=== PATIENT | female | born 1965 | race Caucasian/White ===

== ENCOUNTER 2017-10-09 12:02 | Emergency (ER) | payer SELFPAY ==
[2017-10-09 12:42] VITALS: TEMP 97.7
--- NOTE | 2017-10-09 13:22 | ED.PDOC ---
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 Timing/Duration: gradual EENT Location: eye (R), eye (L) Prearrival Treatment: no prearrival treatment Presenting Symptoms: see hpi Improving Factors: nothing Worsening Factors: nothing Associated Symptoms: denies symptoms, other - see hpi Allergies/Adverse Reactions: Allergies NO KNOWN ALLERGY Allergy (Unverified 03/19/15 18:56) Home Medications: Ambulatory Orders predniSONE 20 mg PO QAM #5 tab 03/19/15 Review of Systems - Review of Systems Constitutional: States: no symptoms reported EENTM: States: see HPI Respiratory: States: no symptoms reported Cardiology: States: no symptoms reported Gastrointestinal/Abdominal: States: no symptoms reported Genitourinary: States: no symptoms reported Musculoskeletal: States: no symptoms reported Skin: States: no symptoms reported Neurological: States: no symptoms reported All other Systems: Reviewed and Negative, No Change from Baseline Past Medical History (General) - Patient Medical History Hx Stroke: No Hx Asthma: No Hx of COPD: No Hx Cardiac Disorders: No Hx Pacemaker: No Hx Hypertension: No Hx Diabetes: No Hx Gastroesophageal Reflux: No Hx Renal Disease: No Surgical History: appendectomy - Social History Hx Tobacco Use: Yes Years Tobacco Use: 9 Cigarettes Packs Per Day: 20 Hx Alcohol Use: No Hx Substance Use: No Hx Physical Abuse: No Hx Emotional Abuse: No Hx Suspected Abuse: No Family Medical History - Family History Mother Family History: Unknown Living Status: Unknown Hx Family Asthma: Yes - copd-dad Hx Family;Other: Multiple sclerosis Physical Exam - Physical Exam General Appearance: Alert, Comfortable, No apparent distress Eye Exam: bilateral normal Ear Exam: bilateral ear: auricle normal, canal normal, TM normal Nasal Exam: normal inspection Throat Exam: normal mouth inspection Cardiovascular/Respiratory: regular rate, rhythm, no M/R/G, normal peripheral pulses, no JVD, normal breath sounds Abdominal Exam: non-tender, no organomegaly Neurologic: alert, oriented x 3 Skin Exam: normal color, warm/dry Progress - Progress Progress: 10/09/17 13:26 Vital Signs 10/09/17 12:37 Temperature 97.7 F Pulse Rate [ 86 left brachial] Respiratory 22 Rate Blood Pressure 135/85 [left brachial] O2 Sat by Pulse 99 Oximetry - Results/Orders Results/Orders: Laboratory Results - last 24 hr 10/09/17 10/09/17 13:27 13:27 WBC 7.7 RBC 5.05 Hgb 16.8 H Hct 48.2 H MCV 95.4 MCH 33.2 H MCHC 35.0 RDW 13.0 Plt Count 263 MPV 10.3 Absolute Neuts (auto) 5.50 Absolute Lymphs (auto) 1.40 Absolute Monos (auto) 0.50 Absolute Eos (auto) 0.10 Absolute Basos (auto) 0.10 Neutrophils % 72.2 Lymphocytes % 18.9 L Monocytes % 6.7 Eosinophils % 1.2 Basophils % 1.0 Sodium 138 Potassium 3.8 Chloride 105 Carbon Dioxide 24 Anion Gap 12.8 BUN 11 Creatinine 0.80 BUN/Creatinine Ratio 13.8 Random Glucose 98 Serum Osmolality 275.1 Calcium 9.9 - EKG/XRAY/CT XRAY: carotid doppler bilateral 40 percent atherosclerosis Departure - Departure Clinical Impression: Retinal dot hemorrhage of both eyes Time of Disposition: 15:31 Disposition: Discharge to Home or Self Care Condition: Fair Departure Forms: ED Discharge - Pt. Copy, Patient Portal Self Enrollment Instructions: Smoking Cessation for Older Adults: It's Not Too Late!, Smoking and Smoking Cessation in Relation to Mortality in Women Home Medications: Ambulatory Orders predniSONE 20 mg PO QAM #5 tab 03/19/15 Additional Instructions: Follow up with primary Md 10/10/2017;continue with baby aspirin 81 mg daily
[2017-10-09 14:37] VITALS: BP 133/87; O2SAT 97
--- NOTE | 2017-10-09 15:21 | US ---
EXAM DESCRIPTION: Carotid Duplex CLINICAL HISTORY: bilateral retinal hemorrhages COMPARISON: None Available. TECHNIQUE: Multiple grayscale, color, and spectral Doppler images of the bilateral carotid systems. FINDINGS: Mild scattered atherosclerotic plaque. All duplex waveforms and velocities are within normal limits on both sides. ICA/CCA ratios are normal. Both vertebral arteries demonstrate antegrade flow. The external carotid arteries are patent. IMPRESSION: 1. Mild atherosclerosis with 0-40% stenosis in both internal carotid arteries by ratio and velocity criteria. Electronically signed by: Artem Castellanos MD 10/09/2017 3:20 PM [facility]
== END 2017-10-09 15:52 | disposition home or self-care (01) ==
LOC: ER 12:02
DX: H35.63 Retinal hemorrhage, bilateral (principal)

== ENCOUNTER 2020-09-08 19:03 | Emergency (ER) | payer SELFPAY ==
--- NOTE | 2020-09-08 19:28 | ED.PDOC ---
History of Present Illness - General Chief Complaint: Upper Extremity Injury Stated Complaint: swelling Left arm, Fractured Time Seen by Provider: 09/08/20 19:18 Source: patient, RN notes reviewed, Vital Signs reviewed, family Exam Limitations: no limitations - History of Present Illness Initial Comments: Pt presents to ED with left shoulder pain. States she had a seizure 3 days ago and was taken to [place] ED and found to have left proximal humerus fracture and was admitted to [facility]. Had negative MRI brain and seizure workup. Was instructed to f/u with an orthopedic for left shoulder fracture and has an appointment to see Dr. Gibbons tomorrow. She has been in a shoulder immobilizer and taking oral Morphine for pain. Her last dose of pain medication was at noon today. Came to ED for left shoulder pain and attempting to be seen by an orthopedist tonight for possible shoulder surgery. Denies tingling or numbness to LUE. Allergies/Adverse Reactions: Allergies NO KNOWN ALLERGY Allergy (Unverified 03/19/15 18:56) Home Medications: Ambulatory Orders predniSONE 20 mg PO QAM #5 tab 03/19/15 Review of Systems - Review of Systems Constitutional: Denies: chills, fever Respiratory: Denies: cough, short of breath Cardiology: Denies: chest pain, palpitations, syncope Gastrointestinal/Abdominal: Denies: abdominal pain, nausea, vomiting Genitourinary: Denies: dysuria Musculoskeletal: States: see HPI Neurological: Denies: headache, paresthesia All other Systems: Reviewed and Negative Past Medical History (General) - Patient Medical History Hx Stroke: No Hx Asthma: No Hx of COPD: No Hx Cardiac Disorders: No Hx Pacemaker: No Hx Hypertension: No Hx Diabetes: No Hx Gastroesophageal Reflux: No Hx Renal Disease: No - Social History Hx Tobacco Use: Yes Hx Alcohol Use: No Hx Substance Use: No Hx Physical Abuse: No Hx Emotional Abuse: No Hx Suspected Abuse: No Family Medical History - Family History Mother Family History: Unknown Living Status: Unknown Hx Family Asthma: Yes - copd-dad Hx Family;Other: Multiple sclerosis Physical Exam - Physical Exam General Appearance: Alert, Other - shoulder immobilizer in place. Neck: non-tender, full range of motion, supple Cardiovascular/Respiratory: regular rate, rhythm, normal peripheral pulses, normal breath sounds, no respiratory distress Abdominal Exam: non-tender Back Exam: no CVA tenderness, no vertebral tenderness Shoulder Exam: pain - Left shoulder is diffusely TTP. 2+ radial pulse. No elbow tenderness. Cap refill < 2 seconds. Compartments are soft. Neuro/Tendon: normal sensation Mental Status: alert, oriented x 3 Skin Exam: normal color, warm/dry, other - No cyanosis or erythema to LUE Progress - Progress Progress: 09/08/20 20:40 Pt presents with left shoulder pain due to known left proximal humerus fracture. She has appointment with ortho tomorrow. She is NVI on exam. Pain is controlled post meds in ED and feels comfortable going home. She has pain medications she will continue at home. SRP given. - Results/Orders Results/Orders: Left Shoulder xray Left humeral head/neck fracture Departure - Departure Clinical Impression: Left humeral fracture Qualifiers: Encounter type: subsequent encounter Humerus Location: proximal Fracture type: closed Fracture morphology: unspecified fracture morphology Fracture healing: with malunion Qualified Code(s): S42.202P - Unspecified fracture of upper end of left humerus, subsequent encounter for fracture with malunion Time of Disposition: 20:39 Disposition: Discharge to Home or Self Care Condition: Good Departure Forms: ED Discharge - Pt. Copy, Patient Portal Self Enrollment Instructions: DI for Arm Pain, Shoulder Fracture (DC) Diet: resume usual diet Activity: other - Keep shoulder immobilizer in place Referrals: Farshad Gibbons MD [Active Staff] - 1-2 Days Home Medications: Ambulatory Orders predniSONE 20 mg PO QAM #5 tab 03/19/15
[2020-09-08 19:29] VITALS: TEMP 99.5
[2020-09-08] MEDS: diazePAM 5 MG TAB PO ONE (19:34)
[2020-09-08] MEDS: HYDROmorphone HCL INJ 2 MG/ML VIAL IM ONE (19:35)
--- NOTE | 2020-09-08 20:26 | RAD ---
EXAM DESCRIPTION: XR Shoulder, Left 2 or More Views CLINICAL HISTORY: proximal humerus fracture TECHNIQUE: 2 views of the left shoulder are submitted. COMPARISON: 09/06/2020 FINDINGS: Bones: Comminuted, impacted left humeral head and neck fracture with extension to the greater tuberosity again demonstrated. Questionable involvement of the articular surface of the humeral head. Joints: No dislocation. Soft tissues: Unremarkable IMPRESSION: Left humeral head/neck fracture. Electronically signed by: Khoa Church MD 09/08/2020 8:24 PM [facility]
[2020-09-08 21:12] VITALS: BP 128/84; O2SAT 95
== END 2020-09-08 21:11 | disposition home or self-care (01) ==
LOC: ER 19:03
DX: S42.252A Displaced fracture of greater tuberosity of left humerus, initial encounter for closed fracture (principal); X58.XXXA Exposure to other specified factors, initial encounter; Z87.891 Personal history of nicotine dependence
CPT/HCPCS: 73030; 96372; 99284; J1170

== ENCOUNTER 2020-09-11 05:46 | Day surgery (SDC) | payer SELFPAY ==
[~2020-09-11 05:46] MED LIST: LACTATED RINGERS 1,000 ML ONE
[2020-09-11] MEDS ORDERED: LACTATED RINGERS 1,000 ML IVS ONE (06:25)
[2020-09-11] MEDS ORDERED: MIDAZOLAM INJ 2 MG/2 ML VIAL ONE (06:35)
[2020-09-11] MEDS ORDERED: FAMOTIDINE INJ 10 MG/ML VIAL IV ONE (06:35)
[2020-09-11] MEDS ORDERED: HYDROmorphone HCL INJ 2 MG/ML VIAL ONE (06:44)
[2020-09-11] MEDS ORDERED: MAGNESIUM SULFATE INJ 1 GM/2 ML VIAL ONE (07:00)
[2020-09-11] MEDS ORDERED: DEXAMETHASONE INJ 10 MG/ML VIAL ONE (07:00)
[2020-09-11] MEDS ORDERED: LIDOCAINE 1% 10 ML VIAL INJ ONE (07:00)
[2020-09-11] MEDS ORDERED: PROPOFOL 200 MG/20 ML VIAL IV ONE (07:00)
[2020-09-11] MEDS ORDERED: LACTATED RINGERS 650 ML IVS ONE ×4 (07:14)
[2020-09-11] MEDS ORDERED: ONDANSETRON INJ 4 MG/2 ML VIAL ONE (07:37)
[2020-09-11] MEDS ORDERED: HYDROcodone 5MG/APAP 325MG 1 EA TAB ONE (08:11)
[2020-09-11] MEDS ORDERED: HYDROcodone 5MG/APAP 325MG 1 EA TAB PO ONE (08:15)
[2020-09-11 08:21] VITALS: TEMP 98.2
[2020-09-11 08:25] VITALS: BP 121/75; O2SAT 94
--- NOTE | 2020-09-11 17:17 | RAD ---
EXAM DESCRIPTION: Fluoroscopy Up to 1Hr CLINICAL HISTORY: 55 years Female, CLOSED REDUCTION LEFT HUMERUS COMPARISON: None. FINDINGS: Single fluoroscopic spot film image of the left shoulder shows fracture through the surgical neck with medial rotation of the humeral head. Widened distance between the glenoid surface and the rotated humeral head. Widened distance between the undersurface of the acromion and the humeral head. Greater tuberosity is oriented cephalad. IMPRESSION: Single spot film image from orthopedic procedure. Electronically signed by: Choco Simon MD 09/11/2020 5:16 PM [facility]
--- NOTE | 2020-10-08 08:59 | OP ---
DATE OF PROCEDURE: 09/11/20 PREOPERATIVE DIAGNOSIS: 1. Humeral neck fracture. POSTOPERATIVE DIAGNOSIS: 1. Humeral neck fracture. PROCEDURE: 1. Attempted closed reduction. SURGEON: Farshad Gibbons MD NOTE SPECIALIST: Jose Manuel Nix CST, SA-C ANESTHESIA: Conscious sedation. COMPLICATION: None. FINDINGS: Fracture of the left humerus neck with no gross motion. INDICATION FOR PROCEDURE: Shantelle has a history of a fall for which she sustained a humeral neck fracture. She elected to have an attempted closed reduction performed of this. We discussed the risks, benefits and alternatives inclusive of the fact that there was a possibility that there would be no gross motion at the fracture site and, therefore, I would be unable to mobilize it. After discussing the risks, benefits and alternatives to that, she gave informed consent for that. PROCEDURE: The patient was brought to the Operating Room and placed in supine position. Sedation was administered and attempt was made to mobilize the fracture. The fracture was not mobile and, therefore, no appreciable reduction was made. The patient was then taken back to the Day Surgery Unit. POSTOPERATIVE PLAN: She will remain in her sling and I will see her back in clinic. We will discuss any further interventions. Shantelle's medical conditions have caused her primary care provider and the anesthesia provider to feel that workup for her recent onset of seizure was necessary before any type of surgical intervention could be performed. We will discuss that further in clinic when she returns. #[id number] MTDD
== END 2020-09-11 09:40 | disposition home or self-care (01) ==
LOC: AMB 05:46
PROVIDERS: ATTEND Orthopaedic Surgery
DX: S42.212A Unspecified displaced fracture of surgical neck of left humerus, initial encounter for closed fracture (principal)
CPT/HCPCS: 01620; 23605; 36415; 76000; 85025; J1100; J1170; J2250; J2405; J3475; J3490; J7120

== ENCOUNTER → 2020-09-15 | Outpatient (CLI) | payer SELFPAY ==
--- NOTE | 2020-09-15 14:33 | CT ---
Study: CT of the Left Shoulder. Indication: CLOSED FX OF PROXIMAL LEFT HUMERUS Technique: Axial CT of the left shoulder was performed without contrast. Coronal and sagittal reformats performed. This exam was performed according to our departmental dose-optimization program, which includes automated exposure control, adjustment of the mA and/or kV according to patient size and/or use of iterative reconstruction technique. Comparison: None. Findings: Moderate AC joint osteoarthritis. Type I acromion. Acute to subacute impacted surgical/anatomic neck fracture of the humerus noted. Distal fracture fragment is impacted by up to 2 cm. The fracture is comminuted with a coronally oriented fracture plane extending through the anterior margins of the lesser and greater tuberosity and undermining the intertubercular groove. This dominant anterior fracture fragment is displaced anteriorly by up to 1 cm. The articular surface of the humeral head appears spared. Small joint effusion. No glenoid/scapula fracture. Impression: Acute impacted fracture involving predominantly the surgical neck of the left humerus but with impaction into the anatomic neck as well as a coronally oriented fracture plane through the lesser and greater tuberosities anteriorly. Additional findings as above. Electronically signed by: Romeo Damon MD 09/15/2020 2:32 PM [facility]
--- NOTE | 2020-09-16 12:55 | MRI ---
EXAM DESCRIPTION: Brain w/wo Contrast: Magnetic Resonance Imaging. 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 TECHNIQUE: Multiplanar, high-field MRI, multiple conventional sequences, without and with Dotarem gadolinium IV contrast, 1 mL per 5 kg body weight. No adverse reactions. Multiple axial diffusion sequences. FINDINGS: Small foci of hyperintense FLAIR and T2-weighted signal in the periventricular white matter abutting the posterior body of the left lateral ventricle and abutting the posterior and anterior body of the right lateral ventricle. These also extend into the bilateral centrum semiovale. Subcortical focal lesions with the same signal in the right frontal lobe at the level of the right frontal horn of the lateral ventricle. A slightly larger lesion with darker T1 signal and no enhancement, extends into the centrum semiovale of the right parietal lobe, at the frontoparietal junction. No hemorrhage, no cerebral edema, no mass-effect. No abnormal contrast enhancement. Normal signal in the bilateral basal ganglia. Normal contrast enhancement. Normal signal in the brainstem and cerebellar hemispheres. Normal contrast enhancement. Concordance of the diffusion and non-diffusion sequences with no evidence of acute or subacute infarction. Cortical sulci, ventricles, and other CSF spaces, and the subdural spaces are normally configured for patient's age. No effacement or displacement. No midline shift. No extra-axial hemorrhage. Normal contrast enhancement. Focal flow void in the bifurcation of the right intracranial ICA and the right A1 segment and M1 segment of the cerebral arteries. Otherwise normal flow signal void in the major vessels of the al[place], and the venous sinuses. IACs are symmetric bilaterally. Minimal fluid signal bilaterally in the mastoid air cells. No mass effect in the bilateral Cerebellopontine angles. Normal contrast enhancement. Pituitary gland occupies most of the sella. Normal contrast enhancement. Base of the cerebellar tonsils is above the foramen magnum. Minimal mucoperiosteal thickening in the paranasal sinuses. No air-fluid levels. The bony calvarium is intact. IMPRESSION: 1. Findings in the periventricular white matter and subcortical white matter frontal parieto-occipital lobes are minimal and most likely related to cerebral microvascular disease or aging. No intra-axial or extra-axial hemorrhage or fluid collection. No mass effect, no cerebral edema, no midline shift. No abnormal contrast enhancement. Possible small focal lacunar infarct near the frontoparietal junction at the vertex, right parietal lobe. 2. Prominent flow signal void distal right intracranial ICA at the bifurcation. Normal variant versus normal course of the vessel, versus aneurysm. Consider CTA of the [place]. Alternatively, MRA can be performed, though less sensitive. 3. Minimal mastoiditis. Chronic paranasal sinusitis. Electronically signed by: Jose Manuel Contreras MD 09/16/2020 12:53 PM [employer] [facility]
== END ==
LOC: CT 09:04
PROVIDERS: ATTEND Family Medicine
DX: S42.292D Other displaced fracture of upper end of left humerus, subsequent encounter for fracture with routine healing (principal); G40.309 Generalized idiopathic epilepsy and epileptic syndromes, not intractable, without status epilepticus; R94.31 Abnormal electrocardiogram [ECG] [EKG]; Z01.89 Encounter for other specified special examinations; R79.89 Other specified abnormal findings of blood chemistry; R90.82 White matter disease, unspecified; H70.90 Unspecified mastoiditis, unspecified ear

== ENCOUNTER → 2020-09-17 | Outpatient (CLI) | payer SELFPAY | LOC: YCFC.O 11:07 | PROVIDERS: ATTEND Family Medicine | DX: R94.31 Abnormal electrocardiogram [ECG] [EKG] (principal) ==

== ENCOUNTER → 2020-10-08 | Outpatient (CLI) | payer SELFPAY ==
--- NOTE | 2020-10-09 09:31 | RAD ---
EXAM DESCRIPTION: Thumb,Right CLINICAL HISTORY: 55 years Female, PN IN RIGHT THUMB COMPARISON: None. FINDINGS: Three views of the right thumb show no acute fracture or malalignment. Mild to moderate joint space narrowing at the first CMC joint with a few tiny calcifications adjacent to the same joint likely degenerative. The soft tissues are unremarkable. IMPRESSION: Mild to moderate degenerative changes at the first CMC joint. Electronically signed by: Charanjit Hunter MD 10/09/2020 9:30 AM [facility]
--- NOTE | 2020-10-09 09:33 | RAD ---
EXAM DESCRIPTION: Shoulder,Left 2 or More Views CLINICAL HISTORY: 55 years Female, CLOSED FX OF PROX LEFT HUMERUS COMPARISON: September 08, 2020 FINDINGS: Again seen is an impacted, slightly displaced and comminuted left humeral head and neck fracture, stable from September 08. The fracture remains nonunited. No new abnormality. IMPRESSION: Nonunited left humeral head and neck fracture, unchanged from September 08. Electronically signed by: Charanjit Hunter MD 10/09/2020 9:31 AM [facility]
== END ==
LOC: RAD 09:23
PROVIDERS: ATTEND Orthopaedic Surgery
DX: S42.292D Other displaced fracture of upper end of left humerus, subsequent encounter for fracture with routine healing (principal); M18.9 Osteoarthritis of first carpometacarpal joint, unspecified